=== PATIENT | female | born 1950 | race Caucasian/White ===

== ENCOUNTER 2024-06-09 17:30 | Inpatient (IN) ==
[2024-06-09] MEDS ORDERED: oxyCODONE/APAP 5/325MG TABLET PO PRN (18:03)
[2024-06-09] MEDS ORDERED: ONDANSETRON 4 MG/2 ML VIAL IV PRN ×2 (18:03→20:45)
[2024-06-09 18:48] LABS: Basophils # (Auto) 0.04 K/mcL (0.00-0.30); Basophils % (Auto) 0.4 % (0.0-2.0); Eosinophils # (Auto) 0.03 K/mcL (0.00-0.70); Eosinophils % (Auto) 0.3 % (0.0-7.0); Hematocrit 38.6 % (34.1-44.9); Hemoglobin 12.5 g/dL (11.2-15.7); Lymphocytes # (Auto) 1.57 K/mcL (1.50-4.80); Lymphocytes % (Auto) 16.2 % (15.5-49.0); Mean Corpuscular HGB Conc 32.4 g/dL (31.0-36.0); Mean Platelet Volume 8.5 fL (8.8-12.5); Monocytes # (Auto) 1.23 K/mcL (0.10-0.90); Monocytes % (Auto) 12.7 % (1.0-12.0); Neutrophils % (Auto) 70.1 % (38.0-78.0); Platelet Count 295 K/mcL (140-440); Red Cell Distribution Width 12.9 % (11.5-14.5); WBC 9.7 K/mcL (4.5-11.0)
[2024-06-09] MEDS ORDERED: IPRATROPIUM/ALBUTEROL 3 ML AMPUL.NEB NEB PRN ×3 (18:52→20:45)
[2024-06-09 18:53] LABS: Partial Thromboplastin Time 31.6 sec (20.0-37.0)
[2024-06-09] MEDS ORDERED: ALBUTEROL SULFATE 2.5 MG/3 ML NEBULIZER NEB PRN (18:53)
[2024-06-09 19:05] LABS: ALT/SGPT 16 U/L (<40); AST/SGOT 18 U/L (<32); Albumin 3.9 gm/dL (3.2-5.2); Albumin/Globulin Ratio 1.6 (1.0-2.3); Alkaline Phosphatase 64 U/L (39-117); Bilirubin,Direct < 0.2 mg/dL (0-0.3); Bilirubin,Total 0.3 mg/dL (0.1-1.0); Blood Urea Nitrogen 13 mg/dL (8-23); Calcium 9.4 mg/dL (8.6-10.4); Carbon Dioxide 28 mmol/L (22-30); Chloride 97 mmol/L (96-108); Globulin 2.5 gm/dL (2.2-3.7); Glomerular Filtration Rate 97; Glucose 97 mg/dL (70-105); Lactate Dehydrogenase 145 U/L (135-225); Phosphorous 3.6 mg/dL (2.5-4.5); Potassium 3.9 mmol/L (3.3-5.1); Sodium 134 mmol/L (133-145); Triglycerides 74 mg/dL (<150); Uric Acid 3.3 mg/dL (2.5-8.0)
[2024-06-09] MEDS ORDERED: PROPOFOL 200 MG/20 ML VIAL IV ONE (19:10)
[2024-06-09] MEDS ORDERED: KETAMINE 50 MG/ML Syringe IV ONE (19:10)
[2024-06-09] MEDS ORDERED: ONDANSETRON 4 MG/2 ML VIAL ONE (19:10)
[2024-06-09] MEDS ORDERED: GLYCOPYRROLATE 0.2 MG/ML VIAL IV ONE (19:10)
[2024-06-09] MEDS ORDERED: DEXAMETHASONE 10 MG/ML VIAL ONE (19:10)
[2024-06-09] MEDS ORDERED: fentaNYL 100 MCG/2 ML VIAL ONE (19:10)
[2024-06-09] MEDS ORDERED: LIDOCAINE 2% PF 5 ML VIAL ONE (19:10)
[2024-06-09] MEDS ORDERED: TRANEXAMIC ACID 1,000 MG/10 ML VIAL ONE (19:10)
[2024-06-09] MEDS: ACETAMINOPHEN 1,000 MG/100 ML BAG IV SCH (19:14)
[2024-06-09] MEDS: HYDROmorphone 0.5 MG/0.5 ML SYRINGE IV PRN (19:15)
[2024-06-09] MEDS: LACTATED RINGERS 1,000 ML IV SCH ×3 (19:15→21:41)
[2024-06-09] MEDS ORDERED: MAGNESIUM SULFATE 2 GM/50 ML BAG IV ONE (19:19)
[2024-06-09] MEDS: ceFAZolin 2 GM in DEXTROSE 5% IN WATER 50 ML IV SCH ×2 (19:43→21:45)
[2024-06-09] MEDS ORDERED: methylPREDNISolone SOD SUCC 125 MG/2 ML VIAL ONE (19:50)
[2024-06-09] MEDS ORDERED: PHENYLephrine 1 MG/10 ML SYRINGE (ANEST) ONE ×2 (19:51→20:30)
[2024-06-09] MEDS ORDERED: ePHEDrine 50 MG/5 ML SYRINGE (ANEST) IV ONE (20:24)
[2024-06-09] MEDS ORDERED: HYDROmorphone 0.5 MG/0.5 ML SYRINGE IV PRN (20:45)
[2024-06-09] MEDS ORDERED: fentaNYL 100 MCG/2 ML VIAL IV PRN (20:45)
[2024-06-09] MEDS ORDERED: BENZOCAINE/MENTHOL 1 LOZENGE PO PRN ×2 (20:45→20:55)
[2024-06-09] MEDS ORDERED: NALOXONE HCL 0.4 MG/ML VIAL IV PRN (20:45)
[2024-06-09] MEDS ORDERED: METHOCARBAMOL 1,000 MG/10 ML VIAL IV PRN (20:45)
[2024-06-09] MEDS ORDERED: LACTATED RINGERS 250 ML IV PRN (20:45)
[2024-06-09] MEDS ORDERED: HYDROcodone/APAP 5/325MG TABLET PO PRN (20:55)
[2024-06-09] MEDS ORDERED: FAMOTIDINE/PF 20 MG/2 ML VIAL IV ONE (20:59)
[2024-06-09] MEDS: TRANEXAMIC ACID 1,000 MG/10 ML VIAL IV ONE ×2 (21:16→21:45)
[2024-06-09] MEDS: 0.9 % SODIUM CHLORIDE 10 ML SYRINGE IV SCH (21:41)
[2024-06-09] MEDS: SENNOSIDES 1 TABLET PO SCH (21:41)
[2024-06-09] MEDS: DOCUSATE SODIUM 100 MG CAPSULE PO SCH (21:41)
[2024-06-09] MEDS: ACETAMINOPHEN 1,000 MG/100 ML BAG IV ONE (21:45)
[2024-06-10] MEDS: oxyCODONE IR 5 MG TABLET PO PRN (03:18)
[2024-06-10] MEDS: ceFAZolin 1 GM VIAL IV SCH (03:20)
[2024-06-10] MEDS ORDERED: ACETAMINOPHEN 500 MG TABLET PO SCH (08:45)
[2024-06-10] MEDS ORDERED: POLYETHYLENE GLYCOL 3350 17 GM PACKET PO PRN (09:59)
[2024-06-10] MEDS: IPRATROPIUM 2.5 ML AMPUL.NEB INH SCH ×2 (10:15→12:51)
[2024-06-10] MEDS: VENLAFAXINE 37.5 MG TAB.ER.24H PO SCH (11:00)
[2024-06-10] MEDS: VENLAFAXINE 150 MG CAP.XL.24H PO SCH (11:01)
[2024-06-10] MEDS: MEMANTINE 10 MG TABLET PO SCH (11:01)
[2024-06-10] MEDS: OLANZapine 5 MG TABLET PO SCH (11:02)
[2024-06-10] MEDS: FLUTICASONE PROPIONATE SPRAY.NAS NS SCH (11:04)
[2024-06-10] MEDS: FLUTICASONE/SALMETEROL 250/50 INHALER #14 INH SCH (11:05)
[2024-06-10] MEDS: ACETAMINOPHEN 500 MG TABLET PO SCH (12:46)
[2024-06-10] MEDS: clonazePAM 1 MG TABLET PO SCH (12:48)
[2024-06-10] MEDS: ACETAMINOPHEN 325 MG TABLET PO SCH (12:50)
[2024-06-10] MEDS ORDERED: IPRATROPIUM 2.5 ML AMPUL.NEB INH SCH (15:00)
[2024-06-10] MEDS: MIRTAZAPINE 15 MG TABLET PO SCH (20:28)
[2024-06-10] MEDS: APIXABAN 5 MG TABLET PO SCH (20:28)
[2024-06-10] MEDS ORDERED: APIXABAN 5 MG TABLET PO SCH (21:00)
[2024-06-11] MEDS: traZODone HCL 50 MG TABLET PO PRN (02:31)
[2024-06-11 06:47] LABS: Blood Urea Nitrogen 11 mg/dL (8-23); Calcium 8.6 mg/dL (8.6-10.4); Carbon Dioxide 28 mmol/L (22-30); Chloride 100 mmol/L (96-108); Glomerular Filtration Rate 97; Glucose 99 mg/dL (70-105); Sodium 135 mmol/L (133-145)
[2024-06-11 06:50] LABS: Basophils # (Auto) 0.02 K/mcL (0.00-0.30); Basophils % (Auto) 0.2 % (0.0-2.0); Eosinophils # (Auto) 0.04 K/mcL (0.00-0.70); Eosinophils % (Auto) 0.5 % (0.0-7.0); Hematocrit 31.6 % (34.1-44.9); Hemoglobin 10.2 g/dL (11.2-15.7); Lymphocytes # (Auto) 2.05 K/mcL (1.50-4.80); Lymphocytes % (Auto) 23.8 % (15.5-49.0); Mean Cell Volume 100.3 fL (80.0-100.0); Mean Corpuscular HGB Conc 32.3 g/dL (31.0-36.0); Monocytes # (Auto) 1.15 K/mcL (0.10-0.90); Monocytes % (Auto) 13.3 % (1.0-12.0); Neutrophils % (Auto) 61.7 % (38.0-78.0); Platelet Count 231 K/mcL (140-440); RBC 3.15 M/mcL (3.59-5.38); Red Cell Distribution Width 13.1 % (11.5-14.5); WBC 8.6 K/mcL (4.5-11.0)
[2024-06-11 17:06] LABS: Hematocrit 35.4 % (34.1-44.9); Hemoglobin 11.3 g/dL (11.2-15.7)
[2024-06-12 06:45] LABS: Basophils # (Auto) 0.03 K/mcL (0.00-0.30); Basophils % (Auto) 0.3 % (0.0-2.0); Eosinophils # (Auto) 0.09 K/mcL (0.00-0.70); Hematocrit 30.5 % (34.1-44.9); Hemoglobin 9.8 g/dL (11.2-15.7); Lymphocytes # (Auto) 1.81 K/mcL (1.50-4.80); Lymphocytes % (Auto) 19.3 % (15.5-49.0); Mean Cell Volume 102.3 fL (80.0-100.0); Mean Corpuscular HGB Conc 32.1 g/dL (31.0-36.0); Mean Platelet Volume 9.5 fL (8.8-12.5); Monocytes # (Auto) 1.29 K/mcL (0.10-0.90); Monocytes % (Auto) 13.8 % (1.0-12.0); Neutrophils % (Auto) 65.4 % (38.0-78.0); Platelet Count 224 K/mcL (140-440); RBC 2.98 M/mcL (3.59-5.38); Red Cell Distribution Width 13.2 % (11.5-14.5); WBC 9.4 K/mcL (4.5-11.0)
[2024-06-12 06:48] LABS: Blood Urea Nitrogen 11 mg/dL (8-23); Calcium 8.7 mg/dL (8.6-10.4); Carbon Dioxide 28 mmol/L (22-30); Chloride 99 mmol/L (96-108); Glomerular Filtration Rate 97; Glucose 112 mg/dL (70-105); Potassium 3.8 mmol/L (3.3-5.1); Sodium 134 mmol/L (133-145)
[2024-06-12 08:44] LABS: Hematocrit 33.9 % (34.1-44.9); Hemoglobin 10.8 g/dL (11.2-15.7)
== END 2024-06-12 10:17 | DRG 482 ==
LOC: MEDSUR 18:00
PROVIDERS: ADMIT Internal Medicine; ATTEND Student in an Organized Health Care Education/Training Program